=== PATIENT | female | born 1960 | race Hispanic/Latino ===

== ENCOUNTER → 2019-07-03 | Outpatient (CLI) | payer BC, MEDICARE | END | disposition home or self-care (01) | LOC: RAH 13:24 | PROVIDERS: ATTEND Physical Medicine & Rehabilitation | DX: M54.12 Radiculopathy, cervical region (principal); M47.892 Other spondylosis, cervical region | CPT/HCPCS: 72141 ==

== ENCOUNTER → 2020-03-11 | Outpatient (CLI) | payer BC, MEDICARE | END | disposition home or self-care (01) | LOC: RAH 13:30 | PROVIDERS: ATTEND Physical Medicine & Rehabilitation | DX: M48.062 Spinal stenosis, lumbar region with neurogenic claudication (principal) | CPT/HCPCS: 72148 ==

== ENCOUNTER 2020-06-23 10:15 | Observation (INO) | payer BC, MEDICARE ==
[~2020-06-23] VITALS: Ht 152.4 cm; Wt 75.9 kg
[2020-06-23 11:21] LABS: POTASSIUM 3.8 mmol/L (3.5-5.1)
[2020-06-23 11:24] LABS: BASOPHILS % (AUTO) 0.3 % (0.0-5.0); EOSINOPHILS % (AUTO) 1.7 % (0.0-8.0); HEMATOCRIT 35.3 % (36-48); LYMPHOCYTES % (AUTO) 12.3 % (21.0-51.0); MEAN CORPUSCULAR HEMOGLOBIN 28.7 pg (27.0-33.0); MEAN CORPUSCULAR HGB CONC 32.9 g/dL (32.0-36.0); MEAN CORPUSCULAR VOLUME 87.4 fL (79-99); MONOCYTES % (AUTO) 9.6 % (3.0-13.0); NEUTROPHILS % (AUTO) 75.3 % (40.0-77.0); PLATELET COUNT (AUTO) 346 K/uL (130-400); RED BLOOD CELL COUNT(AUTO) 4.04 MIL/uL (4.00-5.50); RED CELL DISTRIBUTION WIDTH 14.5 % (11.0-15.5); WHITE BLOOD COUNT (AUTO) 10.5 K/uL (4.8-10.8)
[2020-06-25 10:00] VITALS: BP 168/80
[2020-06-28] MEDS ORDERED: GABA300C PO (10:34)
[2020-06-28] MEDS ORDERED: PRED2.5T PO (10:34)
[2020-06-28] MEDS ORDERED: HYDR-4060 PO (10:34)
[2020-06-28] MEDS ORDERED: PENT400T72 PO (10:34)
[2020-06-28] MEDS ORDERED: AEC81 PO (10:34)
[2020-06-28] MEDS ORDERED: BUTA-256 PO (10:34)
[2020-06-28] MEDS ORDERED: CILO100T PO (10:34)
[2020-06-29] VITALS (24 sets, daily range): BP systolic 126–212; BP diastolic 39–97
[2020-06-29] MEDS: CEFAZOLIN SODIUM 1 GM VIAL IVP SCH ×2 (06:00→07:45)
[2020-06-29] MEDS ORDERED: SUCCINYLCHOLINE CHLORIDE 20 MG/ML 10 ML VIAL ONE (06:32)
[2020-06-29] MEDS ORDERED: LIDOCAINE PF 2% 5ML ABBOJECT ONE (06:32)
[2020-06-29] MEDS ORDERED: PROPOFOL 10 MG/ML 20ML VIAL IV ONE (06:33)
[2020-06-29] MEDS ORDERED: GLYCOPYRROLATE 1 MG/5 ML SYRINGE ONE (06:33)
[2020-06-29] MEDS ORDERED: ONDANSETRON HCL 4 MG/2 ML VIAL ONE (06:33)
[2020-06-29] MEDS ORDERED: DEXAMETHASONE SOD PHOSPHATE 10MG/ML 1ML VIAL ONE (06:33)
[2020-06-29] MEDS ORDERED: NEOSTIGMINE 5MG/5ML SYR IV ONE (06:33)
[2020-06-29] MEDS ORDERED: MIDAZOLAM HCL 1 MG/ML 2ML VIAL ONE (06:33)
[2020-06-29] MEDS ORDERED: FENTANYL CITRATE PF 50 MCG/1 ML 2ML VIAL ONE ×2 (06:34→10:07)
[2020-06-29] MEDS ORDERED: ROCURONIUM 10MG/1ML SYR 10 MG/ML ML ONE ×2 (06:34→08:39)
[2020-06-29] MEDS ORDERED: PHENYLEPHRINE HCL 10 MG/ML 1ML VIAL IV ONE ×2 (06:56→07:03)
[2020-06-29] MEDS ORDERED: BUPIVACAINE/EPI/PF 0.25% 30ML VIAL IJ SCH (07:00)
[2020-06-29] MEDS ORDERED: KETAMINE 50MG/ML SYRINGE 50 MG/ML DISP.SYRIN IV ONE (07:06)
[2020-06-29] MEDS ORDERED: ALBUMIN (HUMAN) 5% 250 ML IV ONE (07:06)
[2020-06-29] MEDS ORDERED: CEFAZOLIN SODIUM 1 GM VIAL ONE (07:08)
[2020-06-29] MEDS ORDERED: THROMBIN-JMI 20000 UNIT KIT TP ONE (07:08)
[2020-06-29] MEDS ORDERED: DURAMORPH PF1 MG/ML 10ML AMP IV ONE (07:08)
[2020-06-29] MEDS ORDERED: LACTATED RINGERS 1000ML 1,000 ML IV ONE (07:12)
[2020-06-29] MEDS ORDERED: PROMETHAZINE HCL 25 MG/ML 1ML AMPULE IM PRN (10:45)
[2020-06-29] MEDS: DEXAMETHASONE SOD PHOSPHATE 4 MG/ML 1ML VIAL IVP SCH ×3 (10:45→22:36)
[2020-06-29] MEDS ORDERED: SODIUM CHLORIDE 0.9% 10 ML VIAL IVP PRN (10:45)
[2020-06-29] MEDS ORDERED: CEFAZOLIN SODIUM 1 GM VIAL IVP SCH ×2 (10:45→15:45)
[2020-06-29] MEDS ORDERED: HYDROCODONE/ACETAMINOPHEN 5/325 MG TAB PO PRN (10:45)
[2020-06-29] MEDS: LACTATED RINGERS 1000ML 1,000 ML IV SCH ×2 (13:10→22:57)
[2020-06-29] MEDS: PENTOXIFYLLINE 400 MG TABLET.SA PO SCH ×2 (16:18→20:51)
[2020-06-29] MEDS: MORPHINE SULFATE 2 MG/ML 1ML SYG IVP PRN ×2 (20:51→23:02)
[2020-06-29] MEDS: GABAPENTIN 300 MG CAPSULE PO SCH (20:51)
[2020-06-29] MEDS ORDERED: CILOSTAZOL 100 MG TAB PO SCH (21:00)
[2020-06-29] MEDS: PREDNISONE 5 MG TABLET PO SCH (21:00)
[2020-06-29] MEDS: HYDROMORPHONE HCL 2 MG/ML VIAL IVP PRN ×2 (22:00→23:02)
[2020-06-30] MEDS: HYDROMORPHONE HCL 2 MG/ML VIAL IVP PRN ×7 (00:05→05:50)
[2020-06-30 03:20] VITALS: BP 143/58
[2020-06-30] MEDS: DEXAMETHASONE SOD PHOSPHATE 4 MG/ML 1ML VIAL IVP SCH ×2 (04:07→10:58)
[2020-06-30 08:31] VITALS: BP 138/57
[2020-06-30] MEDS ORDERED: BUTALB/ACETAMINOPHEN/CAFFEINE 1 EACH TABLET PO SCH (09:00)
[2020-06-30] MEDS ORDERED: ASPIRIN 81 MG EC TAB PO SCH (09:00)
[2020-06-30] MEDS: PENTOXIFYLLINE 400 MG TABLET.SA PO SCH ×2 (10:57→15:21)
[2020-06-30] MEDS: GABAPENTIN 300 MG CAPSULE PO SCH (10:57)
[2020-06-30] MEDS: PREDNISONE 5 MG TABLET PO SCH (10:58)
[2020-06-30 12:11] VITALS: BP 104/45
[2020-06-30] MEDS: LACTATED RINGERS 1000ML 1,000 ML IV SCH (13:25)
[2020-06-30] MEDS: MORPHINE SULFATE 2 MG/ML 1ML SYG IVP PRN (15:21)
--- NOTE | 2020-06-30 17:34 | NUR ---
PT'S D/C WAS DELAYED DUE TO DIFFICULT GROUP OF PT'S TO CARE FOR THAT HAD HIGHER PRIORITY OF NEEDS . D/C PAPERWORK COMPLETED ON AFTER CARE FOR A LAMINECTOMY, DISCUSSED WAS--PAIN CONTROL AND TAKING SCRIPTED MEDICATIONS NEEDED---MOBILITY RESTRICTIONS-- INC. LINE CARE AND KEEPING CLEAN AND DRY AT ALL TIMES--SIGNS AND SYMPTOMS OF POSSIBLE INFECTION TO REPORT TO MD OR ANY OTHER CONCERNS--IF EMERGENCY SITUATION GO TO ED. STAPLE REMOVER KIT GIVEN TO PATIENT, DRESSING CHANGED TO BACK INC. LINE WHICH HAS A WELL APPROX. INC, WITH SHAUNA IN PLACE, NO REDNESS OR DRAINAGE NOTED; ANITA DRAIN REMOVED--INC. LINE CLEANED WITH BETADINE THEN CLEAN DRY GAUZE DRESSING APPLIED; PT JACI. PROC. WELL. IV ACCESS REMOVED AND PT'S CALLED TO ENTREPRENEURSHIP PROGRAM DIRECTOR.
== END 2020-06-30 18:00 | disposition home or self-care (01) ==
LOC: EDSTATUS 10:15 → DAHIP 06-29 05:45 → 3BH 06-29 12:11
PROVIDERS: ADMIT Neurological Surgery; ATTEND Neurological Surgery
DX: M48.062 Spinal stenosis, lumbar region with neurogenic claudication (principal); Z20.828 Contact with and (suspected) exposure to other viral communicable diseases; M06.9 Rheumatoid arthritis, unspecified; M81.0 Age-related osteoporosis without current pathological fracture; Z85.51 Personal history of malignant neoplasm of bladder; Z90.710 Acquired absence of both cervix and uterus; Z93.6 Other artificial openings of urinary tract status; Z79.899 Other long term (current) drug therapy
CPT/HCPCS: 36415; 63047; 63048; 71045; 72020; 80051; 85025; 96361; 96372; 96374; 96375; 96376 ×3; A4215; A4216; A4221; A4222; A4223 ×2; A4510; A4600; A4649 ×4; A4657; A4663; G0378 ×35; J0330; J0690 ×3; J1100 ×5; J1170 ×13; J2001; J2250; J2274; J2370 ×2; J2405; J2550; J2704; J2710; J3010 ×2; J3490 ×2; J7120 ×3; J7512 ×2; P9045; U0003

== ENCOUNTER → 2020-11-23 | Outpatient (CLI) | payer BC, MEDICARE ==
[~2020-11-23] MED LIST: AEC81 PO; BUTA-256 PO; CILO100T PO; GABA300C PO; HYDR-4060 PO; PENT400T72 PO; PRED2.5T PO
== END | disposition home or self-care (01) ==
LOC: RAH 12:41
PROVIDERS: ATTEND Physical Medicine & Rehabilitation
DX: M48.061 Spinal stenosis, lumbar region without neurogenic claudication (principal); M54.16 Radiculopathy, lumbar region
CPT/HCPCS: 72148

== ENCOUNTER → 2022-04-10 | Outpatient (CLI) | payer OTHER, MEDICARE ==
[~2022-04-10] MED LIST changes: +GADOTERATE MEGLUMINE 10 MMOL/20 ML VIAL IV ONE
== END | disposition home or self-care (01) ==
LOC: RAH 13:37
PROVIDERS: ATTEND Internal Medicine Hematology & Oncology
DX: R16.0 Hepatomegaly, not elsewhere classified (principal); E78.2 Mixed hyperlipidemia; D63.1 Anemia in chronic kidney disease; Z43.5 Encounter for attention to cystostomy; M31.4 Aortic arch syndrome [Takayasu]; D64.9 Anemia, unspecified; C67.0 Malignant neoplasm of trigone of bladder; E86.0 Dehydration; M46.90 Unspecified inflammatory spondylopathy, site unspecified; M79.606 Pain in leg, unspecified; D50.9 Iron deficiency anemia, unspecified
CPT/HCPCS: 74183; A9575

== ENCOUNTER 2022-07-03 07:25 | Day surgery (SDC) | payer OTHER, MEDICARE ==
[~2022-07-03 07:25] MED LIST changes: -CILO100T PO; +CILO100T3 PO; -GADOTERATE MEGLUMINE 10 MMOL/20 ML VIAL IV ONE
[2022-07-03] MEDS ORDERED: 0.9%NACL 1000ML 1,000 ML IV ONE (09:02)
[2022-07-03] MEDS ORDERED: MIDAZOLAM HCL 1 MG/ML 2ML VIAL ONE (11:32)
[2022-07-03] MEDS ORDERED: FENTANYL CITRATE PF 50 MCG/1 ML 2ML VIAL ONE (11:32)
[2022-07-03 12:15] VITALS: BP 112/82
[2022-07-03 12:30] VITALS: BP 98/49
[2022-07-03 12:45] VITALS: BP 98/49
[2022-07-03 13:00] VITALS: BP 101/69
[2022-07-03 13:30] VITALS: BP 102/63
[2022-07-03 14:00] VITALS: BP 114/71
[2022-07-03 14:46] LABS: INR 0.93 (0.85-1.15); PROTHROMBIN TIME 10.1 SEC (9.6-11.6)
[2022-07-03] MEDS ORDERED: LIDOCAINE HCL-MPF 1% 2ML VIAL ONE (14:46)
[2022-07-03 14:48] LABS: PARTIAL THROMBOPLASTIN TIME 24.5 SEC (26.3-35.5)
== END 2022-07-03 14:21 | disposition home or self-care (01) ==
LOC: DAH 07:25 → RAH 07:25 → EDSTATUS 08:00 → RAH 14:21
PROVIDERS: ATTEND Internal Medicine Hematology & Oncology
DX: R16.0 Hepatomegaly, not elsewhere classified (principal); E78.2 Mixed hyperlipidemia; D63.1 Anemia in chronic kidney disease; M31.4 Aortic arch syndrome [Takayasu]; D50.9 Iron deficiency anemia, unspecified; Z85.51 Personal history of malignant neoplasm of bladder; Z79.899 Other long term (current) drug therapy; Z79.01 Long term (current) use of anticoagulants
CPT/HCPCS: 47000; 85610; 85730; 36415; 76942; A4663; J3010; J7030; J3490; C2615 ×2; A4215; A4223; A4222; A4221; 99152; 99153; J2250

== ENCOUNTER → 2023-04-05 | Outpatient (CLI) | payer OTHER, MEDICARE ==
[~2023-04-05] MED LIST changes: +IOHEXOL-350 75 ML VIAL IV ONE
== END | disposition home or self-care (01) ==
LOC: RAH 09:53
PROVIDERS: ATTEND Internal Medicine
DX: I65.21 Occlusion and stenosis of right carotid artery (principal); M31.4 Aortic arch syndrome [Takayasu]
CPT/HCPCS: 70498; Q9967

== ENCOUNTER 2024-01-22 13:05 | Emergency (ER) | payer OTHER, MEDICARE ==
[~2024-01-22] VITALS: Ht 152.4 cm; Wt 62.1 kg
[~2024-01-22 13:05] MED LIST changes: +ALPR0.5T8 PO; -BUTA-256 PO; +BUTA1CAP53 PO; +GABA600T PO; -IOHEXOL-350 75 ML VIAL IV ONE; -PRED2.5T PO; +PRED5TAB PO; +TOPI-97 PO; +VENL-63 PO; +XALA2.5OS OS
[2024-01-22 14:31] LABS: BASOPHILS # (AUTO) 0.02 K/uL (0.00-0.20); BASOPHILS % (AUTO) 0.4 % (0.0-5.0); EOSINOPHILS % (AUTO) 1.8 % (0.0-8.0); HEMATOCRIT 27.3 % (36-48); IMMATURE GRANULOCYTE ABSOLUTE 0.04 K/uL (0-1); LYMPHOCYTES # (AUTO) 0.7 K/uL (1.0-4.8); LYMPHOCYTES % (AUTO) 12.3 % (21.0-51.0); MEAN CORPUSCULAR HEMOGLOBIN 29.6 pg (27.0-33.0); MEAN CORPUSCULAR HGB CONC 31.1 g/dL (32.0-36.0); MEAN CORPUSCULAR VOLUME 95.1 fL (79-99); MONOCYTES # (AUTO) 0.4 K/uL (0.1-1.0); MONOCYTES % (AUTO) 7.6 % (3.0-13.0); NEUTROPHILS # (AUTO) 4.2 K/uL (1.8-7.7); NEUTROPHILS % (AUTO) 77.2 % (40.0-77.0); PLATELET COUNT (AUTO) 257 K/uL (130-400); RED BLOOD CELL COUNT(AUTO) 2.87 MIL/uL (4.00-5.50); RED CELL DISTRIBUTION WIDTH 18.8 % (11.0-15.5); WHITE BLOOD COUNT (AUTO) 5.4 K/uL (4.8-10.8)
[2024-01-22 14:55] LABS: CREATININE 0.8 mg/dL (0.5-1.0); POTASSIUM 4.3 mmol/L (3.5-5.1)
[2024-01-22 15:40] LABS: INR <= 0.93 (0.85-1.15); PROTHROMBIN TIME 10.5 SEC (9.6-11.6)
[2024-01-22 15:42] LABS: PARTIAL THROMBOPLASTIN TIME 26.5 SEC (26.3-35.5)
[2024-01-22] MEDS ORDERED: CILO100T3 PO (16:36)
[2024-01-22] MEDS ORDERED: PENT400T72 PO (16:36)
[2024-01-22 16:42] VITALS: BP 154/58; PULSE 76; RESP 18; O2SAT 98
== END 2024-01-22 17:00 | disposition home or self-care (01) ==
LOC: EDH 13:05
DX: M79.89 Other specified soft tissue disorders (principal); D46.9 Myelodysplastic syndrome, unspecified; E87.1 Hypo-osmolality and hyponatremia; Z79.82 Long term (current) use of aspirin; Z79.899 Other long term (current) drug therapy; Z98.890 Other specified postprocedural states; Z88.8 Allergy status to other drugs, medicaments and biological substances
CPT/HCPCS: 36415; 80048; 85025; 85610; 85730

== ENCOUNTER → 2024-01-23 | Outpatient (CLI) | payer OTHER, MEDICARE | END | disposition home or self-care (01) | LOC: WHH 09:51 | PROVIDERS: ATTEND Nurse Practitioner Family | DX: S71.101A Unspecified open wound, right thigh, initial encounter (principal); S30.1XXA Contusion of abdominal wall, initial encounter; L76.32 Postprocedural hematoma of skin and subcutaneous tissue following other procedure; E11.22 Type 2 diabetes mellitus with diabetic chronic kidney disease; I13.0 Hypertensive heart and chronic kidney disease with heart failure and stage 1 through stage 4 chronic kidney disease, or unspecified chronic kidney disease; N18.4 Chronic kidney disease, stage 4 (severe); M31.4 Aortic arch syndrome [Takayasu]; I25.10 Atherosclerotic heart disease of native coronary artery without angina pectoris; E11.65 Type 2 diabetes mellitus with hyperglycemia; E78.00 Pure hypercholesterolemia, unspecified; Z95.1 Presence of aortocoronary bypass graft; Z90.49 Acquired absence of other specified parts of digestive tract; Z79.82 Long term (current) use of aspirin; Z79.899 Other long term (current) drug therapy; X58.XXXA Exposure to other specified factors, initial encounter; Y93.89 Activity, other specified; Y92.89 Other specified places as the place of occurrence of the external cause; Y99.9 Unspecified external cause status; Y99.8 Other external cause status | CPT/HCPCS: 10140; A4450; A6260; 11042; 11045 ==

== ENCOUNTER → 2024-01-28 | Outpatient (CLI) | payer OTHER, MEDICARE | END | disposition home or self-care (01) | LOC: WHH 09:55 | PROVIDERS: ATTEND Nurse Practitioner Family | DX: S71.101D Unspecified open wound, right thigh, subsequent encounter (principal); L76.32 Postprocedural hematoma of skin and subcutaneous tissue following other procedure; E11.65 Type 2 diabetes mellitus with hyperglycemia; E11.22 Type 2 diabetes mellitus with diabetic chronic kidney disease; I13.0 Hypertensive heart and chronic kidney disease with heart failure and stage 1 through stage 4 chronic kidney disease, or unspecified chronic kidney disease; N18.4 Chronic kidney disease, stage 4 (severe); M31.4 Aortic arch syndrome [Takayasu]; E78.00 Pure hypercholesterolemia, unspecified; I48.91 Unspecified atrial fibrillation; I25.10 Atherosclerotic heart disease of native coronary artery without angina pectoris; M81.0 Age-related osteoporosis without current pathological fracture; Z90.49 Acquired absence of other specified parts of digestive tract; Z95.818 Presence of other cardiac implants and grafts; Z86.718 Personal history of other venous thrombosis and embolism; Z95.1 Presence of aortocoronary bypass graft; Z79.82 Long term (current) use of aspirin; Z79.899 Other long term (current) drug therapy; X58.XXXD Exposure to other specified factors, subsequent encounter | CPT/HCPCS: G0463; A6260 ==

== ENCOUNTER → 2024-02-03 | Outpatient (CLI) | payer OTHER, MEDICARE | END | disposition home or self-care (01) | LOC: WHH 09:46 | PROVIDERS: ATTEND Family Medicine | DX: S30.1XXD Contusion of abdominal wall, subsequent encounter (principal); S71.101D Unspecified open wound, right thigh, subsequent encounter; L76.32 Postprocedural hematoma of skin and subcutaneous tissue following other procedure; I48.91 Unspecified atrial fibrillation; I25.10 Atherosclerotic heart disease of native coronary artery without angina pectoris; I13.0 Hypertensive heart and chronic kidney disease with heart failure and stage 1 through stage 4 chronic kidney disease, or unspecified chronic kidney disease; E11.22 Type 2 diabetes mellitus with diabetic chronic kidney disease; N18.4 Chronic kidney disease, stage 4 (severe); E78.00 Pure hypercholesterolemia, unspecified; M31.4 Aortic arch syndrome [Takayasu]; Z95.1 Presence of aortocoronary bypass graft; Z95.818 Presence of other cardiac implants and grafts; Z90.49 Acquired absence of other specified parts of digestive tract; Z79.82 Long term (current) use of aspirin; Z79.899 Other long term (current) drug therapy; X58.XXXD Exposure to other specified factors, subsequent encounter | CPT/HCPCS: 97605; A6209 ==

== ENCOUNTER → 2024-02-24 | Outpatient (CLI) | payer OTHER, MEDICARE ==
[~2024-02-24] MED LIST changes: +LIDOCAINE HCL 4% LTA SOL 4 ML VIAL TP ONE
== END | disposition home or self-care (01) ==
LOC: WHH 10:02
PROVIDERS: ATTEND Family Medicine
DX: S30.1XXD Contusion of abdominal wall, subsequent encounter (principal); S71.101D Unspecified open wound, right thigh, subsequent encounter; L76.32 Postprocedural hematoma of skin and subcutaneous tissue following other procedure; I48.91 Unspecified atrial fibrillation; I25.10 Atherosclerotic heart disease of native coronary artery without angina pectoris; E11.22 Type 2 diabetes mellitus with diabetic chronic kidney disease; I13.0 Hypertensive heart and chronic kidney disease with heart failure and stage 1 through stage 4 chronic kidney disease, or unspecified chronic kidney disease; N18.4 Chronic kidney disease, stage 4 (severe); E78.00 Pure hypercholesterolemia, unspecified; M31.4 Aortic arch syndrome [Takayasu]; Z95.1 Presence of aortocoronary bypass graft; Z95.818 Presence of other cardiac implants and grafts; Z90.49 Acquired absence of other specified parts of digestive tract; Z79.82 Long term (current) use of aspirin; Z79.899 Other long term (current) drug therapy; X58.XXXD Exposure to other specified factors, subsequent encounter
CPT/HCPCS: 97605; A6021

== ENCOUNTER → 2024-03-09 | Outpatient (CLI) | payer OTHER, MEDICARE ==
[~2024-03-09] MED LIST changes: -LIDOCAINE HCL 4% LTA SOL 4 ML VIAL TP ONE
== END | disposition home or self-care (01) ==
LOC: WHH 09:53
PROVIDERS: ATTEND Family Medicine
DX: S30.1XXD Contusion of abdominal wall, subsequent encounter (principal); S71.101D Unspecified open wound, right thigh, subsequent encounter; L76.32 Postprocedural hematoma of skin and subcutaneous tissue following other procedure; I48.91 Unspecified atrial fibrillation; I25.10 Atherosclerotic heart disease of native coronary artery without angina pectoris; E11.51 Type 2 diabetes mellitus with diabetic peripheral angiopathy without gangrene; E11.22 Type 2 diabetes mellitus with diabetic chronic kidney disease; I13.0 Hypertensive heart and chronic kidney disease with heart failure and stage 1 through stage 4 chronic kidney disease, or unspecified chronic kidney disease; N18.4 Chronic kidney disease, stage 4 (severe); E78.00 Pure hypercholesterolemia, unspecified; M31.4 Aortic arch syndrome [Takayasu]; Z95.1 Presence of aortocoronary bypass graft; Z95.818 Presence of other cardiac implants and grafts; Z90.49 Acquired absence of other specified parts of digestive tract; Z79.82 Long term (current) use of aspirin; Z79.899 Other long term (current) drug therapy; X58.XXXD Exposure to other specified factors, subsequent encounter
CPT/HCPCS: 99214; A6021; A6196; A4450

== ENCOUNTER → 2024-03-16 | Outpatient (CLI) | payer OTHER, MEDICARE | END | disposition home or self-care (01) | LOC: WHH 09:52 | PROVIDERS: ATTEND Family Medicine | DX: S30.1XXD Contusion of abdominal wall, subsequent encounter (principal); S71.101D Unspecified open wound, right thigh, subsequent encounter; L76.32 Postprocedural hematoma of skin and subcutaneous tissue following other procedure; E11.51 Type 2 diabetes mellitus with diabetic peripheral angiopathy without gangrene; E11.22 Type 2 diabetes mellitus with diabetic chronic kidney disease; I13.0 Hypertensive heart and chronic kidney disease with heart failure and stage 1 through stage 4 chronic kidney disease, or unspecified chronic kidney disease; N18.4 Chronic kidney disease, stage 4 (severe); E78.00 Pure hypercholesterolemia, unspecified; I25.10 Atherosclerotic heart disease of native coronary artery without angina pectoris; I48.91 Unspecified atrial fibrillation; M31.4 Aortic arch syndrome [Takayasu]; Z95.1 Presence of aortocoronary bypass graft; Z95.818 Presence of other cardiac implants and grafts; Z90.49 Acquired absence of other specified parts of digestive tract; Z79.82 Long term (current) use of aspirin; Z79.899 Other long term (current) drug therapy; X58.XXXD Exposure to other specified factors, subsequent encounter | CPT/HCPCS: 99214; A6021; A6196 ==

== ENCOUNTER → 2024-03-30 | Outpatient (CLI) | payer OTHER, MEDICARE | END | disposition home or self-care (01) | LOC: WHH 10:16 | PROVIDERS: ATTEND Family Medicine | DX: S71.101D Unspecified open wound, right thigh, subsequent encounter (principal); S30.1XXD Contusion of abdominal wall, subsequent encounter; L76.82 Other postprocedural complications of skin and subcutaneous tissue; E11.51 Type 2 diabetes mellitus with diabetic peripheral angiopathy without gangrene; E11.22 Type 2 diabetes mellitus with diabetic chronic kidney disease; I13.0 Hypertensive heart and chronic kidney disease with heart failure and stage 1 through stage 4 chronic kidney disease, or unspecified chronic kidney disease; N18.4 Chronic kidney disease, stage 4 (severe); E78.00 Pure hypercholesterolemia, unspecified; I25.10 Atherosclerotic heart disease of native coronary artery without angina pectoris; I48.91 Unspecified atrial fibrillation; M31.4 Aortic arch syndrome [Takayasu]; Z95.1 Presence of aortocoronary bypass graft; Z95.818 Presence of other cardiac implants and grafts; Z90.49 Acquired absence of other specified parts of digestive tract; Z79.82 Long term (current) use of aspirin; X58.XXXD Exposure to other specified factors, subsequent encounter | CPT/HCPCS: 99214 ==